=== PATIENT | male | born 1995 | race Two or more races ===

== ENCOUNTER 2018-07-28 09:37 | Emergency (ER) | payer OTHER ==
[~2018-07-28] VITALS: Ht 165.1 cm; Wt 74.8 kg
[~2018-07-28 09:37] MED LIST: DIVA250T PO; LAMO100T2
[2018-07-28] MEDS ORDERED: FLUORESCEIN SODIUM OPHTH 1 EA STRIP ONE (10:04)
[2018-07-28] MEDS ORDERED: TETRACAINE HCL/PF 0.5% UD 2 ML BOTTLE ONE (10:05)
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
[2018-07-28] MEDS ORDERED: FLUORESCEIN SODIUM OPHTH 1 EA STRIP OP ONE (10:30)
[2018-07-28] MEDS ORDERED: TETRACAINE HCL/PF 0.5% UD 2 ML BOTTLE LEFTEYE ONE (10:30)
[2018-07-28 11:07] VITALS: BP 125/71
--- NOTE | 2018-07-28 11:09 | NUR ---
Patient discharged to police custody in stable condition. Written and verbal after care instructions given. Patient verbalizes understanding of instruction.
== END 2018-07-28 11:08 ==
LOC: ER 09:40
DX: S00.511A Abrasion of lip, initial encounter (principal); S60.511A Abrasion of right hand, initial encounter; H11.32 Conjunctival hemorrhage, left eye; J45.909 Unspecified asthma, uncomplicated; Z79.899 Other long term (current) drug therapy; Y04.0XXA Assault by unarmed brawl or fight, initial encounter; Y93.89 Activity, other specified; Y92.89 Other specified places as the place of occurrence of the external cause; Y99.8 Other external cause status

== ENCOUNTER 2018-09-28 17:34 | Emergency (ER) | payer OTHER ==
[~2018-09-28] VITALS: Ht 167.6 cm; Wt 70.3 kg
[2018-09-28 17:47] VITALS: BP 154/82
--- NOTE | 2018-09-28 17:55 | NUR ---
[id number], OVERDOSE ON METH SINCE LAST NIGHT, BS 76. PT IN CUSTODY. REFUSES TO BE EVALUATED.
--- NOTE | 2018-09-28 18:27 | NUR ---
PT NO LONGER IN CUSTODY, AGREES TO EVALUATION. NOTIFIED
[2018-09-28 18:47] LABS: BASOPHILS % (AUTO) 0.6 % (0.0-2.0); EOSINOPHILS % (AUTO) 0.7 % (0.0-6.0); HEMATOCRIT 51 % (39-51); HEMOGLOBIN 17.4 g/dL (13.5-17.5); LYMPHOCYTES % (AUTO) 28.7 % (20.0-44.0); MEAN CORPUSCULAR HGB CONC 34 g/dl (31.0-36.0); MEAN CORPUSCULAR VOLUME 93 fL (80-96); MONOCYTES # (AUTO) 0.8 /CMM (0.1-1.30); MONOCYTES % (AUTO) 10.8 % (2.0-12.0); NEUTROPHILS # (AUTO) 4.1 /CMM (1.8-8.9); NEUTROPHILS % (AUTO) 59.2 % (43.0-81.0); PLATELET COUNT (AUTO) 281 /CMM (150-450); RED BLOOD CELL COUNT(AUTO) 5.44 MIL/uL (4.5-6.0)
[2018-09-28 18:54] LABS: CALCIUM, SERUM 9.7 mg/dL (8.5-10.1); POTASSIUM 4.4 mmol/L (3.5-5.1)
--- NOTE | 2018-09-28 20:32 | NUR ---
Patient eloped from facility. ER MD notified.
[2018-09-28] MEDS: DIVALPROEX SODIUM 500 MG TABLET.DR PO ONE (20:54)
== END 2018-09-28 20:35 | disposition left against medical advice (07) ==
LOC: ER 17:36
DX: G40.909 Epilepsy, unspecified, not intractable, without status epilepticus (principal); F15.10 Other stimulant abuse, uncomplicated; J45.909 Unspecified asthma, uncomplicated; Z79.899 Other long term (current) drug therapy
CPT/HCPCS: 36415; 80048-TC; 80164-TC; 85025-TC

== ENCOUNTER 2018-11-06 12:53 | Emergency (ER) | payer MEDICAID, OTHER ==
[~2018-11-06] VITALS: Ht 160 cm; Wt 59.9 kg
[2018-11-06] MEDS ORDERED: HYDROMORPHONE INJ 2 MG/ML DISP.SYRIN IV ONE (13:30)
[2018-11-06] MEDS ORDERED: HYDROMORPHONE 1 MG/1 ML DISP.SYRIN ONE (13:31)
[2018-11-06 14:39] VITALS: BP 125/71
--- NOTE | 2018-11-06 14:40 | NUR ---
Patient discharged to home in stable condition. Written and verbal after care instructions given. Patient verbalizes understanding of instruction.IV removed. Catheter intact and site benign. Pressure and 4x4 applied to site. No bleeding noted.
== END 2018-11-06 14:40 | disposition home or self-care (01) ==
LOC: ER 12:53
DX: M24.412 Recurrent dislocation, left shoulder (principal); R56.9 Unspecified convulsions; J45.909 Unspecified asthma, uncomplicated; V13.4XXA Pedal cycle driver injured in collision with car, pick-up truck or van in traffic accident, initial encounter; Y93.89 Activity, other specified; Y92.410 Unspecified street and highway as the place of occurrence of the external cause; Y99.8 Other external cause status
CPT/HCPCS: 23650; 96374; 99284; J1170